=== PATIENT | female | born 1970 | race Hispanic/Latino ===

== ENCOUNTER 2023-05-15 08:47 | Emergency (ER) | payer SELFPAY ==
[2023-05-15 08:50] VITALS: BP 130/70; PULSE 84; RESP 16; TEMP 36.8; O2SAT 100
--- NOTE | 2023-05-15 08:52 | ED.EXTPRO ---
HPI - Extremity Problem General Chief complaint: Skin/Abscess/Foreign Body Stated complaint: Right Foot Toe Wound Time Seen by Provider: 05/15/23 09:00 Source: patient Mode of arrival: ambulatory Limitations: no limitations History of Present Illness HPI Narrative: Flor is a 52-year-old female patient presenting to the clinic today with complaints of a wound to her right 4th toe. She reports that she 1st noticed this 3 days ago. She is a diabetic. Is having some pain up into the dorsal mid foot with mild redness. Denies any known injury. Related Data Home Medications Medication Instructions Recorded Confirmed canagliflozin 300 mg tablet 300 mg PO DIRECTED 05/15/23 05/15/23 (Invokana) lisinopril 10 mg tablet 10 mg PO DAILY 05/15/23 05/15/23 metformin 500 mg tablet 500 mg PO BID 05/15/23 05/15/23 simvastatin 20 mg tablet 20 mg PO DAILY 05/15/23 05/15/23 Allergies Allergy/AdvReac Type Severity Reaction Status Date / Time No Known Allergies Allergy Verified 05/15/23 09:07 Review of Systems Review of Systems: Pertinent positives per HPI. Patient denies any fever, chills, rash, headache, visual changes, dizziness, cough, runny nose, sore throat, shortness of breath, chest pain, palpitations, nausea, vomiting, diarrhea, constipation, abdominal pain, or any urinary issues. PMFSH Comments At the time of my signature, I reviewed and agree with the nursing past medical, surgical, social, and family history. There is no relevant family history pertinent to the patient complaint. Exam Narrative: General: Well-developed, well nourished, in no apparent distress Head: Normocephalic, atraumatic. Cardio: Regular rate and rhythm, s1 and s2 normal, no murmur appreciated. Resp: Clear to auscultation bilaterally, no rhonchi, rales, wheezing or rubs. Integumentary: [place], warm, and dry, open ulcerated wound to the right lateral 4th toe with surrounding redness, area was tender to palpation without induration-wound measuring approximately [id number] discharge Course Course Emergency Course: Portions of this record may have been created with voice recognition software. Level of Care: Express Care Visit Vital Signs Vital signs: Vital signs reviewed MDM - Extremity (Nontraumatic) MDM Narrative Medical decision making narrative: At the time of visit patient is resting comfortably on the exam table. I suspect patient has a infected wound to her right 4th toe. Will send in prescription for mupirocin and have her take Keflex. Will have her follow-up with her PCP this week and she is a diabetic to make sure she is not needing wound consult. Supportive measures were discussed with the patient she voiced understanding of discharge instructions and agrees to treatment plan. Differential Diagnosis Differential diagnosis: Likely cellulitis and other (Diabetic ulcer, wound infection) Discharge Plan Discharge Clinical Impression: Wound infection Patient Disposition: Home, Self-Care Condition: Stable Instructions: Antibiotic Form, Wound Infection (ED) Additional Instructions: Keep wound clean and dry Wash daily with soap and water and pat dry Apply mupirocin cream to the affected area twice daily x7 days Take cephalexin 3 times daily times 7 days Keep tight control of your blood sugar. Continue current medications. May take Tylenol/Motrin as needed for pain Follow-up with your PCP this week Go to the emergency room if you develop high fever not controlled by Tylenol/Motrin, confusion, weakness, lethargy, shortness of breath, chest pain, or abdominal pain Prescriptions: New mupirocin 2 % ointment 1 applic topical BID 7 Days Qty: 22 0RF cephalexin 500 mg capsule 500 mg PO Q8H 7 Days Qty: 21 0RF No Action metformin 500 mg tablet 500 mg PO BID simvastatin 20 mg tablet 20 mg PO DAILY lisinopril 10 mg tablet 10 mg PO DAILY Invokana 300 mg tablet
== END 2023-05-15 09:11 | disposition home or self-care (01) ==
PROVIDERS: Emergency Provider Nurse Practitioner Family; PCP Physician Assistant
DX: S91.104A Unspecified open wound of right lesser toe(s) without damage to nail, initial encounter (principal); L08.9 Local infection of the skin and subcutaneous tissue, unspecified; X58.XXXA Exposure to other specified factors, initial encounter; E11.9 Type 2 diabetes mellitus without complications; E78.00 Pure hypercholesterolemia, unspecified; I10 Essential (primary) hypertension
CPT/HCPCS: 99213; G0463